=== PATIENT | female | born 1925 | race Caucasian/White ===

== ENCOUNTER 2016-07-18 11:08 | Emergency (ER) | payer MEDICARE ==
[~2016-07-18 11:08] MED LIST: Sodium Chloride 0.9% 100 ML BAG ONE
[2016-07-18] MEDS ORDERED: Promethazine HCl 25 MG/ML VIAL ONE (11:48)
[2016-07-18 11:59] LABS: #Basophils 0.2 thou/uL (0.0-0.2); #Eosinphils 0.4 thou/uL (0.0-0.7); #Lymphocytes 1.8 thou/uL (1.20-3.40); #Monocytes 1.2 thou/uL (0.11-0.59); #Neutrophils 9.8 thou/uL (1.40-6.50); %Basophils 1.3 % (0.0-1.0); %Eosinophils 3.1 % (0.0-10.0); %Lymphocytes 13.2 % (21.0-51.0); %Monocytes 9.1 % (0.0-10.0); %Neutrophils 73.3 % (42.0-75.0); Hemoglobin 14.6 g/dL (12.0-16.0); Mean Corpuscular HGB CONC 32.3 g/dL (32.0-36.0); Mean Corpuscular Volume 89.8 fl (81.0-99.0); Mean Platelet Volume 7.3 fL (7.4-10.4); Platelet Count 302 thou/uL (130-400); RBC Distribution Width 13.1 % (11.5-14.5); Red Blood Cell (RBC) Count 5.03 mill/uL (4.20-5.40); White Blood Cell (WBC) Count 13.3 thou/uL (4.8-10.8)
[2016-07-18 12:13] LABS: Bilirubin Negative (Negative); Blood, Urine Trace (Negative); Clarity Clear (Clear); Glucose, Urine (Dipstick) Negative (Negative); Leukocyte Negative (Negative); Nitrite Negative (Negative); Protein, Urine (Dipstick) 30 mg/dL (Neg-Trace); pH, Urine 5.5 (5.0-9.0)
[2016-07-18 12:22] LABS: CKMB 1.1 ng/mL (0-6.6); Troponin I Less than 0.010 ng/mL (< 0.028)
[2016-07-18 12:25] LABS: Bacteria/HPF None Seen HPF (None Seen); RBC/HPF 0-3 HPF (0-3); Squamous Epithelial 0-3 HPF (0-3); WBC/HPF 0-3 HPF (0-3)
[2016-07-18 12:28] LABS: ALT (SGPT) 14 U/L (0-55); AST (SGOT) 23 U/L (5-34); Albumin 3.6 g/dL (3.4-4.8); Alkaline Phosphatase 61 U/L (40-150); Anion Gap 16 mmol/L (10-20); BUN (Urea Nitrogen) 13 mg/dL (9.8-20.1); Bilirubin, Total 0.4 mg/dL (0.2-1.2); Calc. Creatinine Clearance 0 mL/min (70-130); Calcium 8.7 mg/dL (7.8-10.44); Carbon Dioxide 20 mmol/L (23-31); Chloride 109 mmol/L (98-107); Estimated GFR-MDRD 67; Globulin 2.7 g/dL (2.4-3.5); Glucose 96 mg/dL (83-110); Lipase 38 U/L (8-78); Potassium 3.8 mmol/L (3.5-5.1); Protein, Total 6.3 g/dL (5.8-8.1); Sodium 141 mmol/L (136-145)
[2016-07-18] MEDS ORDERED: Iopamidol 370 76% 125 ML VIAL FS ONE (13:21)
--- NOTE | 2016-07-18 14:37 | CT ---
CT HEAD WITHOUT CONTRAST: Technique: Multiple axial tomograms were obtained through the head without IV enhancement. History: Syncope. FINDINGS: There is mild cortical volume loss. The ventricles have normal size and position. Mild chronic isc hemic white matter change. No evidence of intracranial hemorrhage, contusion, mass or hemorrhage. Sinuses and mastoids are well aerated. IMPRESSION: There are chronic changes as described above. No evidence of acute process. No significant change when compared to a prior CT dated 04-13-12. POS: [facility]
--- NOTE | 2016-07-18 15:33 | CT ---
CT PULMOLNARY ANGIO STUDY OF CHEST WITH IV CONTRAST: Multiple axial tomograms obtained through the chest with IV enhancement in the pulmonary angio phase [id number] angio protocol with multiplanar reconstruction and 3D post processing. HISTORY: Syncope. Shortness of breath. Assess for pulmonary embolus. FINDINGS: Pulmonary arteries show adequate enhancement. There is no evidence of pulmonary embolus identified. The lung quevedo show chronic parenchymal changes. Apical pleural thickening with irregular parenchy mal opacities in the apices appears chronic. There is a nodular area of parenchymal opacity in the left apex measuring 1.2 cm which will need to be followed to confirm stability. There is a 7 mm chi cified granuloma in the right mid lung which is seen adjacent to the fissure. No evidence of effusi on. No evidence of infiltrate. No evidence of mediastinal or hilar adenopathy. Images through the upper abdomen appear unremarkable. There is a dominant low-density nodule in the right lobe of the thyroid measuring up to 1.5 cm. IMPRESSION: 1. No evidence of pulmonary embolus. 2. Chronic lung parenchymal changes. There is bilateral apical pleural thickening. There is a nod ular component in the left apex. Followup CT chest in 6 months is recommended to reevaluate. 3. No acute lung process identified. 4. Evidence of a dominant low density nodule in the right lobe of the thyroid. Recommend elective thyroid ultrasound evaluation. POS: [facility]
--- NOTE | 2016-07-18 16:14 | PICIS ---
[facility] EMERGENCY RECORD COMMUNICATIONS (15:05 AWAT) COMMUNICATIONS: Notes: DR PÉREZ AT [facility] IN [place] ACCEPTS PT FOR TRANSFER AT THIS TIME. TRIAGE (11:13 SCHI) TRIAGE NOTES: vomiting and passing out. (11:13 SCHI) PATIENT: NAME: Shelley Silverman, AGE: 89, GENDER: female, : Sindy 1925, TIME OF GREET: ThuJul 18, 2016 11:08, PREFERRED LANGUAGE: Swedish, ETHNICITY: Not or , ECODE BILLING MAP: [facility], SSN: [id number], Zip Code: [address], KG WEIGHT: 54.43, PHONE: , , , PERSON ID: [id number]. (11:13 SCHI) COMPLAINT: THROWING UP/NAUSEA. (11:13 SCHI) ADMISSION: URGENCY: 3 Urgent, ADMISSION SOURCE: Home, TRANSPORT: AMBULANCE - [facility], BED: ED -01. (11:13 SCHI) ASSESSMENT: Assessment: ALERT AND ORIENTED X 4, SKIN WARM AND DRY RESP EVEN AND UNLABORED,, Symptoms began this morning. (12:33 SCHI) PAIN: No complaint of pain. (12:33 SCHI) TRIAGE SCREENING: Patient denies suicidal ideation, Domestic violence. (12:33 SCHI) TREATMENTS IN PROGRESS: Saline Lock, Site: [facility], Gauge: 20, IV: .9NS, Amount Infused 50, See EMS Record, Medications Given, zofran. (12:33 SCHI) PROVIDERS: TRIAGE NURSE: Tito Nichols RN. (11:13 SCHI) VITAL SIGNS: BP 121/49, Pulse 62, Resp 18, O2 Sat 98, on Room Air, Time 07/18/2016 11:12. (11:12 SCHI) KNOWN ALLERGIES Demerol (PF): Reaction: Nausea doxycycline hyclate: Reaction: Nausea fentaNYL: Reaction: Rash Limbrel: Reaction: Nausea Macrobid: Reaction: Anaphylaxis morphine (bulk): Reaction: Nausea Penicillins: Reaction: Hives phenazopyridine Sulfa (Sulfonamide Antibiotics): Reaction: Rash tape traMADol: Reaction: Nausea Zofran (PF): Reaction: Nausea CURRENT MEDICATIONS ALPRAZolam: TABLET : Strength - 0.5 mg : ORAL Patient Dose: once a day (at bedtime).as needed. (13:24 SCHI) aspirin: TABLET : Strength - 81 mg : ORAL Patient Dose: once a day. (13:24 SCHI) &a-1R&a+25V*p+0X*b8036Q*c202B*c15G*c2P*p-0X&a-25V&a+1R Name: Shelley Silverman : 1925 F89 MedRec: [id number] AcctNum: [id number] Prepared: Sat Jul 19, 2016 03:17 by Interface Page 1 of 16 pMD [facility] EMERGENCY RECORD Lumigan: DROPS : Strength - 0.03 % : OPHTHALMIC Patient Dose: once a day (at bedtime). (13:25 SCHI) gabapentin: CAPSULE : Strength - 300 mg : ORAL Patient Dose: once a day (at bedtime). (13:25 SCHI) levothyroxine: TABLET : Strength - 75 mcg : ORAL Patient Dose: once a day. (13:25 SCHI) lisinopril: TABLET : Strength - 20 mg : ORAL Patient Dose: once a day. (13:26 SCHI) NexIUM: CAPSULE,DELAYED RELEASE (ENTERIC COATED) : Strength - 40 mg : ORAL Patient Dose: 2 times a day. (13:26 SCHI) oxybutynin chloride: TABLET : Strength - 5 mg : ORAL Patient Dose: every other day. (13:27 SCHI) Oyst-Lele D: TABLET : Strength - 250 mg calcium (625 mg)-125 unit : ORAL Patient Dose: once a day. (13:27 SCHI) simvastatin: TABLET : Strength - 40 mg : ORAL Patient Dose: once a day. (13:27 SCHI) Zonegran: CAPSULE : Strength - 25 mg : ORAL Patient Dose: 4 times a day. (13:28 SCHI) VITAL SIGNS VITAL SIGNS: BP: 121/49, Pulse: 62, Resp: 18, O2 sat: 98 on Room Air, Time: 07/18/2016 11:12. (11:12 SCHI) BP: 130/59, Pulse: 90, Resp: 20, O2 sat: 96 on Room Air, Time: 07/18/2016 13:52. (13:52 SCHI) BP: 127/62 (Lying), Pulse: 81, Time: 07/18/2016 13:00. (13:00 SCHI) BP: 127/62 (Sitting), Pulse: 81, Time: 07/18/2016 13:04. (13:04 SCHI) BP: 158/118 (Standing), Pulse: 81, Time: 07/18/2016 13:05. (13:05 SCHI) BP: 140/55, Pulse: 81, Resp: 18, Pain: 0, O2 sat: 97 on Room Air, Time: 07/18/2016 13:10. (13:10 SCHI) BP: 156/43, Pulse: 84, Time: 07/18/2016 14:30. (14:30 SCHI) BP: 147/51, Pulse: 84, Time: 07/18/2016 15:00. (15:00 SCHI) BP: 144/51, Pulse: 86, Resp: 20, Temp: 98.1 (Tympanic), Pain: 0, O2 sat: 98 on Room Air, Time: 07/18/2016 15:45. (15:45 SCHI) NURSING ASSESSMENT: NEURO (12:02 SCHI) GCS: (6) Obeying command:, (5) Orientated:, (4) Spontaneous eye opening., Result: 15. NIHSS: CVA assessment findings: Level of consciousness: alert, keenly responsive (0), Questions: answers both questions correctly (0), Commands: performs both tasks correctly (0), Best gaze: normal (0), Visual: no visual loss (0), Facial palsy: normal symmetrical &a-1R&a+25V*p+0X*d4299P*c202B*c15G*c2P*p-0X&a-25V&a+1R Name: Shelley Silverman : 1925 F89 MedRec: [id number] AcctNum: [id number] Prepared: Sat Jul 19, 2016 03:17 by Interface Page 2 of 16 pMD [facility] EMERGENCY RECORD movement (0), Motor arm left: no drift, arm stays 90/45 degrees for full 10 seconds (0), Motor arm right: no drift, arm stays 90 or45 degrees for full 10 seconds (0), Motor left leg: no drift, leg stays at 30 degrees for full five seconds (0), Motor right leg: no drift, leg stays at 30 degrees for full five seconds (0), Limb ataxia: absent -if 0, go to sensory (0), Sensory: normal, no sensory loss (0), Best language: no aphasia; normal (0), Dysarthria: normal (0), Extinction and Inattention: normal (0), Total score 0. CONSTITUTIONAL: Patient arrives, via Emergency Medical Services, Unsteady gait, Assistance to cart, History obtained from patient, Patient appears, generally ill, Patient cooperative, Patient alert, Oriented to person, place and time, Skin warm, Skin dry, Skin normal in color, Mucous membranes pink, Mucous membranes moist, Patient is well-groomed, Patient complains of vomiting and nausea and passed out x 2 this morning. PAIN: Patient rates pain as 0 out of 10. NEURO: Pupils equally round and reactive to light, Able to close eyes, Face symmetrical, Speech normal, Associated with dizziness described as, feelings of movement. NURSING PROCEDURE: BEDSIDE TESTING (15:09 SCHI) HEMOCCULT/GASTROCCULT: Stool sample, result positive, Control line positive. NURSING PROCEDURE: ACCOUNT EXECUTIVE KEY ACCOUNTS (12:02 SCHI) ACCOUNT EXECUTIVE KEY ACCOUNTS: Patient placed on event representative, Patient placed on non-invasive blood pressure monitor, Patient placed on continuous pulse oximetry, Adult/pediatric oxisensor applied. NURSING PROCEDURE: EKG CHART (12:02 SCHI) PATIENT IDENTIFIER: Patient actively involved in identification process, Patient's identity verified by patient stating name, Patient's identity verified by patient stating date. EKG: EKG indicated for complaint of palpitations, 12 lead EKG performed on the left chest, done by PIERRE MARES, Notes: repeated due to artifact from spine stimulator. NOTES: Emotional support needed and given, Patient tolerated procedure well. SAFETY: Side rails up, Cart/Stretcher in lowest position, Family at bedside, Hospital ID band on. NURSING PROCEDURE: ELIMINATION PATIENT IDENTIFIER: Patient actively involved in identification process. (14:00 SCHI) Patient actively involved in identification process. (13:10 SCHI) ELIMINATION: Patient assisted to bedside commode, Urine output (mL) 300. (14:00 SCHI) Patient assisted to bedside commode. (14:12 SCHI) Patient assisted to bedside commode, Patient had a large amount of stool per bedpan, soft in form. (13:10 SCHI) &a-1R&a+25V*p+0X*m0490J*c202B*c15G*c2P*p-0X&a-25V&a+1R Name: Shelley Silverman : 1925 F89 MedRec: [id number] AcctNum: [id number] Prepared: Sat Jul 19, 2016 03:17 by Interface Page 3 of 16 pMD [facility] EMERGENCY RECORD NURSING PROCEDURE: NURSE NOTES NURSES NOTES: Notes: Influenza A & B screen collected at bedside per nasal swab. Patient tolerated well. Family at bedside. (11:50 EROG) Notes: all times are approximate due to care being provided, then documented. (12:02 SCHI) NURSING PROCEDURE: TRANSFER (15:55 SCHI) TRANSFER: Reason for transfer need for specialized care, Diagnosis: syncopal, gi bleed, gastroenteritis, Accepting institution: [facility] er, Accepting physician: kim, Referring physician: cuca, Transported by urgent ambulance, accompanied by emergency medical services personnel, Report called to receiving facility, attempted x 2, Summary of Care printed, Copy of patient record prepared for receiving facility, Copy of diagnostic studies, Status of patient's valuables documented on chart, Medication reconciliation form prepared and sent to receiving facility, Patient consent for transfer signed, Family member contacted. BELONGINGS: Belongings sent home with family member. EQUIPMENT WITH PATIENT: Equipment with patient at time of transfer event representative, Saline lock intact and patent at time of transfer. NURSING PROCEDURE: TRANSPORT TO TESTS TRANSPORT TO TESTS: Transport indicated to facilitate diagnosis, Patient transported to CT scan. (13:15 SCHI) FOLLOW-UP: After procedure, patient returned to emergency department, Notes: PLACED BACK ON MONITORS. (13:51 SCHI) NURSING PROCEDURE: URINE COLLECTION (12:02 SCHI) PATIENT IDENTIFIER: Patient's identity verified by patient stating name, Patient's identity verified by hospital ID bracelet. URINE COLLECTION FEMALE: Urine collection indicated for UA COLLECTION, Urine collected by straight cath, using an 8fr catheter kit, in one attempt, urine yellow in color, and clear, Specimen collected, labeled in the presence of the patient and sent to lab. ORDER DETAILS Order Name: B type Natriuretic Peptide, Status: Active, Time: 11:23 07/18/2016, User: BRITTNI, - Ordered for: MD Thurman Darren, - Entered by: MD Thurman Darren - Jimmy Jul 18, 2016 11:23, - Quantity: 1, Order Name: ACCOUNT EXECUTIVE KEY ACCOUNTS ED, Status: Done, Time: 11:38 07/18/2016, User: ENEDINA, - Ordered for: MD Thurman Darren, - Entered by: MD Thurman Darren - Jimmy Jul 18, 2016 11:23, - Quantity: 1, &a-1R&a+25V*p+0X*t3872Y*c202B*c15G*c2P*p-0X&a-25V&a+1R Name: Shelley Silverman : 1925 F89 MedRec: [id number] AcctNum: [id number] Prepared: [facility] Jul 19, 2016 03:17 by Interface Page 4 of 16 pMD [facility] EMERGENCY RECORD Order Name: Cardiac Profile w/CKMB & Troponin - I, Status: Active, Time: 11:23 07/18/2016, User: BRITTNI, - Ordered for: MD Thurman Darren, - Entered by: MD Thurman Darren - ThuJul 18, 2016 11:23, - Quantity: 1, Order Name: CATH STRAIGHT ED, Status: Done, Time: 12:03 07/18/2016, User: SARAH, - Ordered for: MD Thurman Darren, - Entered by: MD Thurman Darren - Jimmy Jul 18, 2016 11:23, - Quantity: 1, Order Name: CBC with Differential, Status: Active, Time: 11:23 07/18/2016, User: BRITTNI, - Ordered for: MD Thurman Darren, - Entered by: MD Thurman Darren - Jimmy Jul 18, 2016 11:23, - Quantity: 1, Order Name: Clostridium difficile Screen, Status: Active, Time: 14:49 07/18/2016, User: BRITTNI, - Ordered for: MD Thurman Darren, - Entered by: MD Thurman Darren - Jimmy Jul 18, 2016 14:49, - Quantity: 1, Order Name: Comprehensive Metabolic Panel, Status: Active, Time: 11:23 07/18/2016, User: BRITTNI, - Ordered for: MD Thurman Darren, - Entered by: MD Thurman Darren - Jimmy Jul 18, 2016 11:23, - Quantity: 1, Order Name: CT Brain WO Con, Status: Active, Time: 12:41 07/18/2016, User: BRITTNI, - Ordered for: MD Thurman Darren, - Entered by: MD Tuhrman Darren - Jimmy Jul 18, 2016 12:41, - Quantity: 1, Order Name: CTA Angio Chest W WO Con(PE Protocol), Status: Active, Time: 12:41 07/18/2016, User: BRITTNI, - Ordered for: MD Thurman Darren, - Entered by: MD Thurman Darren - Jimmy Jul 18, 2016 12:41, - Quantity: 1, Order Name: Culture, Blood, Status: Active, Time: 11:23 07/18/2016, User: BRITTNI, - Ordered for: MD Thurman Darren, - Entered by: MD Thurman Darren - Jimmy Jul 18, 2016 11:23, - Quantity: 1, Order Name: Culture, Stool for E.coli O157, Status: Active, Time: 14:47 07/18/2016, User: BRITTNI, - Ordered for: MD Thurman Darren, - Entered by: MD Thurman Darren - Jimmy Jul 18, 2016 14:47, - Quantity: 1, Order Name: D-Dimer (Quantitative), Status: Active, Time: 11:23 07/18/2016, User: BRITTNI, - Ordered for: MD Thurman Darren, - Entered by: MD Thurman Darren - Jimmy Jul 18, 2016 11:23, - Quantity: 1, &a-1R&a+25V*p+0X*s5953P*c202B*c15G*c2P*p-0X&a-25V&a+1R Name: HerreraShelley : 1925 F89 MedRec: [id number] AcctNum: [id number] Prepared: Sat Jul 19, 2016 03:17 by Interface Page 5 of 16 pMD [facility] EMERGENCY RECORD Order Name: EKG 12 Lead in Emergency Room, Status: Active, Time: 11:23 07/18/2016, User: BRITTNI, - Ordered for: MD Thurman Darren, - Entered by: MD Thurman Darren - Jimmy Jul 18, 2016 11:23, - Quantity: 1, Order Name: EKG 12 Lead in Emergency Room, Status: Active, Time: 14:14 07/18/2016, User: BRITTNI, - Ordered for: MD Thurman Darren, - Entered by: MD Thurman Darren - ThuJul 18, 2016 14:14, - Quantity: 1, Order Name: Fecal Lactoferrin, Status: Active, Time: 14:48 07/18/2016, User: BRITTNI, - Ordered for: MD Thurman Darren, - Entered by: MD Thurman Darren - ThuJul 18, 2016 14:48, - Quantity: 1, Order Name: Influenza A&B Ag Screen, Status: Active, Time: 11:23 07/18/2016, User: BRITTNI, - Ordered for: MD Thurman Darren, - Entered by: MD Thurman Darren - ThuJul 18, 2016 11:23, - Quantity: 1, Order Name: Lactic Acid with repeat, Status: Active, Time: 11:23 07/18/2016, User: BRITTNI, - Ordered for: MD Thurman Darren, - Entered by: MD Thurman Darren - ThuJul 18, 2016 11:23, - Quantity: 1, Order Name: Lipase, Status: Active, Time: 11:23 07/18/2016, User: BRITTNI, - Ordered for: MD Thurman Darren, - Entered by: MD Thurman Darren - Jimmy Jul 18, 2016 11:23, - Quantity: 1, Order Name: Occult Blood, Stool DIAGNOSTIC(Guiac), Status: Active, Time: 14:48 07/18/2016, User: BRITTNI, - Ordered for: MD Thurman Darren, - Entered by: MD Thurman Darren - ThuJul 18, 2016 14:48, - Quantity: 1, Order Name: SALINE LOCK, Status: Done, Time: 11:45 07/18/2016, User: SARAH, - Ordered for: MD Thurman Darren, - Entered by: MD Thurman Darren - ThuJul 18, 2016 11:23, - Quantity: 1, Order Name: Thyroid Stimulating Hormone, Status: Active, Time: 11:23 07/18/2016, User: BRITTNI, - Ordered for: MD Thurman Darren, - Entered by: MD Thurman Darren - ThuJul 18, 2016 11:23, - Quantity: 1, Order Name: Urinalysis w/ Rflx Microscopic, Status: Active, Time: 11:23 07/18/2016, User: BRITTNI, - Ordered for: MD Thurman Darren, - Entered by: MD Thurman Darren - ThuJul 18, 2016 11:23, - Quantity: 1. &a-1R&a+25V*p+0X*y0686D*c202B*c15G*c2P*p-0X&a-25V&a+1R Name: Shelley Silverman : 1925 F89 MedRec: [id number] AcctNum: [id number] Prepared: [facility] Jul 19, 2016 03:17 by Interface Page 6 of 16 pMD [facility] EMERGENCY RECORD MEDICATION ADMINISTRATION SUMMARY Drug Name: *Phenergan injection, Dose Ordered: 12.5 mg, Route: IV Piggy Back, Status: Given, Time: 12:01 07/18/2016, Drug Name: *sodium chloride 0.9 % intravenous, Dose Ordered: 500 mL, Route: IV Fluid Infusion, Status: Given, Time: 11:30 07/18/2016, *Additional information available in notes, Detailed record available in Medication Service section. MEDICATION SERVICE Phenergan injection: Order: Phenergan injection (promethazine HCl) - Dose: 12.5 mg : IV Piggy Back Schedule: Now Notes: please place in 50 ml minibag Ordered by: Wilbur Thurman MD Entered by: Wilbur Thurman MD ThuJul 18, 2016 11:26 , Acknowledged by: Tito Nichols RN ThuJul 18, 2016 11:47 Documented as given by: Tito Nichols RN ThuJul 18, 2016 12:01 Patient, Medication, Dose, Route and Time verified prior to administration. IV SITE #1 IVPB or drip, initial infusion, IVPB mixed in: 100ml, Fluid: 0.9NS, via secondary tubing, Catheter placement confirmed via flush prior to administration, IV site without signs or symptoms of infiltration during medication administration, No swelling during administration, No drainage during administration, IV flushed after administration, Correct patient, time, route, dose and medication confirmed prior to administration, Patient advised of actions and side-effects prior to administration, Allergies confirmed and medications reviewed prior to administration. : Follow Up : Response assessment performed, No signs or symptoms of allergic reaction noted, _IV SITE #1:_, Medication infusion discontinued, on ThuJul 18, 2016 12:30, 30 minutes, ., Total amount infused: 100 ml, IV Line flushed after administration. (12:30 SCHI) sodium chloride 0.9 % intravenous: Order: sodium chloride 0.9 % intravenous (0.9 % sodium chloride) - Dose: 500 mL : IV Fluid Infusion Schedule: Now Notes: (Bolus)then SL Ordered by: Wilbur Thurman MD Entered by: Wilbur Thurman MD ThuJul 18, 2016 11:21 Documented as given by: Tito Nichols RN ThuJul 18, 2016 11:30 Patient, Medication, Dose, Route and Time verified prior to administration. IV SITE #1 IV fluids established for hydration, IV SITE #1 into right antecubital, IV SITE #1 1st bag hung, amount 1 Liter hung, IV SITE #1 bolus of 500 ml established, IV SITE #1 Rate of bolus, wide open, Catheter placement confirmed via flush prior to administration, IV site without signs or symptoms of infiltration during medication &a-1R&a+25V*p+0X*z4926V*c202B*c15G*c2P*p-0X&a-25V&a+1R Name: Shelley Silverman : 1925 F89 MedRec: [id number] AcctNum: [id number] Prepared: [place] Jul 19, 2016 03:17 by Interface Page 7 of 16 pMD [facility] EMERGENCY RECORD administration, No swelling during administration, No drainage during administration, IV flushed after administration, Correct patient, time, route, dose and medication confirmed prior to administration, Patient advised of actions and side-effects prior to administration, Allergies confirmed and medications reviewed prior to administration. : Follow Up : Response assessment performed, No signs or symptoms of allergic reaction noted, _IV SITE #1:_, IV fluid infusion discontinued, on ThuJul 18, 2016 12:25, 55 minutes, ., Total amount infused: 500 ml, IV Line flushed after administration. (12:25 SCHI) HPI SYNCOPE (12:42 DHAM) CHIEF COMPLAINT: Patient presents for evaluation of syncope. HISTORIAN: History provided by patient, Pt was sitting on the toilet and became unconscious for about 15 sec with cargiver closeby. Did not fall. Assisted to the bed and then had another episode of syncope with 15 sec of LOC and 4-5 episodes of emesis of "undigested food" per EMS. They also examined the stool and it appeared normal not hard or diarrhea. EMS was there for the second episode of syncope and the vomiting. No melena or bloody emesis. EMS gave Zofran 4mg en route but family states that Zofran usually makes the patient more nauseated. She has trouble with chronic nausea and has tried many meds and "Phenergan is the only thing that works for her.". LOCATION: Unable to localize symptoms. QUALITY: Symptom quality described as blackout. SEVERITY: Current severity of pain rated as 0/10. TIME COURSE: Sudden onset of symptoms, 1, hours prior to arrival, There has been no change in the patient's symptoms over time. ASSOCIATED WITH: No associated abdominal pain, No associated back pain, No associated change in speech, No associated chest pain, No associated diarrhea, No associated diaphoresis, No associated fall, No associated focal deficit, No associated GI Bleed, No associated headache, No associated pleuritic chest pain, No associated recent surgery, Associated with hoahaoism of normal mental status, immediate, No associated shortness of breath, No associated seizures, No associated tachycardia, Associated with vomiting, Number of times: 4-5, for 1 hour, currently resolved, Associated with weakness. MODIFYING FACTORS: Patient menopausal. EXACERBATED BY: Patient's condition exacerbated by bm and vomiting. RELIEVED BY: Patient's condition relieved by time. RISK FACTORS: Abdominal aortic aneurysm risk factors, include age over 40 years, Subarachnoid hemorrhage risk factors, not applicable for this patient, Thoracic aortic dissection risk factors, not applicable for this patient, Coronary artery disease risk factors, include high cholesterol, include h/o tia, Pulmonary embolism risk factors, not applicable to this patient. WELLS CRITERIA FOR PE: No clinical signs &a-1R&a+25V*p+0X*a6097K*c202B*c15G*c2P*p-0X&a-25V&a+1R Name: Shelley Silverman : 1925 F89 MedRec: [id number] AcctNum: [id number] Prepared: [place] Jul 19, 2016 03:17 by Interface Page 8 of 16 pMD [facility] EMERGENCY RECORD and symptoms of a DVT (0), Patient does not have, or is likely to not have, a primary diagnosis of PE (0), Patient's heart rate is less than 100 (0), Patient has no history of immobilization within 3 days, nor any surgical history within the past 4 weeks (0), Patient has not had an objectively diagnosed PE or DVT previously (0), Patient does not have hemoptysis (0), Patient has not had treatment for malignancy within the last 6 months, nor palliative (0), Total 0. ROS (12:51 DHAM) CONSTITUTIONAL: Historian denies fatigue, denies fever, denies lethargy, denies night sweats. EYES: Historian denies eye discharge, denies photophobia. ENT: Historian denies rhinorrhea, denies sinus pain, denies sore throat. CARDIOVASCULAR: Historian denies chest pain, denies diaphoresis, denies dyspnea on exertion, denies edema, denies exercise intolerance, denies palpitations. RESPIRATORY: Historian denies cough, denies shortness of breath, denies sputum. GI: Historian denies abdominal pain, Historian denies anorexia, Historian denies constipation, Historian denies diarrhea, Historian denies hematochezia, Historian reports nausea and vomiting as noted above. GENITOURINARY FEMALE: Historian denies dysuria, denies frequency, denies hematuria, denies incontinence. MUSCULOSKELETAL: Historian denies arthralgias, Historian reports chronic low back pain with implanted spinal stimulator, Historian denies myalgias. SKIN: Historian denies cellulitis, denies rash, denies skin lesions. NEUROLOGIC: Historian denies focal weakness, Historian denies confusion, Historian denies gait changes, Historian denies headache, Historian denies paresthesias. syncope x 2 as above. HEMO/LYMPHATIC: Historian denies anemia, denies easy bruising. PSYCHIATRIC: Historian denies alcohol abuse, denies anxiety, denies depression. NOTES: All systems reviewed, negative except as described above. PAST MEDICAL HISTORY (12:33 SCHI) MEDICAL HISTORY: Notes: gerd, djd, vertigo, lumbar stenosis, arachnoiditis, renal cyst,. FEMALE SURGICAL HISTORY: s;inal cord stimulator, Surgical history of appendectomy, Surgical history of carpal tunnel surgery, Notes: bilateral, Surgical history of cholecystectomy, Surgical history of hysterectomy, Surgical history of tonsillectomy. PHYSICAL EXAM (12:56 DHAM) CONSTITUTIONAL: Vital signs reviewed, Patient afebrile, Pulse normal, Blood pressure normal, Respiratory rate normal, Patient &a-1R&a+25V*p+0X*f8471E*c202B*c15G*c2P*p-0X&a-25V&a+1R Name: Shelley Silverman : 1925 F89 MedRec: [id number] AcctNum: [id number] Prepared: Sat Jul 19, 2016 03:17 by Interface Page 9 of 16 pMD [facility] EMERGENCY RECORD appears weak and like she does not feel well. Prefers to lay supine, Patient appears pain free, Patient alert and oriented to person, place and time. HEAD: Head exam normal, Head exam included findings of head atraumatic, normocephalic. EYES: Eye exam included findings of eyelids normal to inspection, Pupils equally round and reactive to light, Extraocular muscles intact, Conjunctiva normal, Sclera normal. ENT: Ear exam normal, Nose exam normal, Pharynx exam normal, Uvula exam normal, Tonsil exam normal, Mouth exam normal, mucous membranes moist. NECK: Neck exam normal, Neck exam included findings of normal range of motion, Trachea midline, no meningeal signs, no jugular venous distention, no cervical adenopathy. RESPIRATORY CHEST: Respiratory and chest exam normal, Respiratory exam included findings of no respiratory distress, Breath sounds clear, No wheezing, No rales, Breath sounds not diminished. CARDIOVASCULAR: Cardiovascular exam included findings of heart rate regular rate and rhythm, Heart sounds normal, normal S1, normal S2, no murmurs, Pedal pulses normal. ABDOMEN FEMALE: Abdominal exam normal, Abdominal exam included findings of abdomen nontender, Bowel sounds normal, Liver normal, Spleen normal, no distension, no mass, no peritoneal signs, no rigidity, no guarding, no rebound. BACK: Back exam normal, Back exam included findings of normal inspection, range of motion normal, no tenderness. UPPER EXTREMITY: Upper extremity exam normal, Upper extremity exam included findings of inspection normal, Range of motion normal, Motor strength normal, Sensation intact. LOWER EXTREMITY: Lower extremity exam normal, Lower extremity exam included findings of inspection normal, Range of motion normal, Motor strength normal, Sensation intact, Pedal pulse normal. NEURO: Thrall coma scale 15, Neuro exam findings include patient oriented to person, place and time, Speech normal, Gait normal, Cranial nerves intact, Deep tendon reflexes normal, no focal motor deficits, no focal sensory deficits, no cerebellar deficits. SKIN: Skin exam normal, Skin exam included findings of skin warm, dry, and normal in color, no rash. LYMPHATIC: Lymphatic exam normal, Lymphatic exam included findings of cervical nodes normal. PSYCHIATRIC: Psychiatric exam included findings of patient oriented to person place and time, Normal affect, Judgment normal, Insight normal, Remote memory normal, Recent memory normal, Concentration normal. LAB INTERPRETATION (13:05 DHAM) INTERPRETATION: CBC abnormal, White blood cell count elevated, Chemistry normal, Cardiac enzymes normal, Liver functions normal, Lipase normal, Urinalysis normal, D-dimer, elevated, Influenza negative, Lactate &a-1R&a+25V*p+0X*q2084L*c202B*c15G*c2P*p-0X&a-25V&a+1R Name: Shelley Silverman : 1925 F89 MedRec: [id number] AcctNum: [id number] Prepared: Sat Jul 19, 2016 03:17 by Interface Page 10 of 16 D [facility] EMERGENCY RECORD normal. EVENTS TRANSFER: Triage to Emergency Main ED -01. (ThuJul 18, 2016 11:13 SCHI) Removed from Emergency Main ED -01. (16:10 SCHI) [facility] Head CT negative, without contrast, no bleed, no mass, no acute ischemic stroke, no acute changes. CHEST: Chest CT, with contrast shows, no fractures, no infiltrate, no pneumothorax, no hemothorax, no pleural effusion, no pulmonary embolism, mass on the left, Other findings: left apex with 1.5cm thickening at the apex with follow recommended in 6 months and 1.5cm thyroid nodule with thyroid ultrasound recommended. Pt and family aware of both of these. EKG INTERPRETATION 12 LEAD EKG INTERPRETATION: 12 lead EKG interpreted by Emergency Department Physician at time of study, 12 lead EKG shows normal sinus rhythm, Rate (beats per minute): 65, with no ectopics, No previous EKG available for comparison, Conduction with, complete right bundle branch block, ST segments normal, T waves, inverted, Leads affected: V1, Leads affected: V2, Areas affected: anterior leads, Kismet normal, Clinical impression:, There is marked interference that I think is due to her spinal stimulator and this is as specific as I can be. The family will bring the controller to turn this off for repeat EKG vipul. (13:03 DHAM) 12 lead EKG interpreted by Emergency Department Physician at time of study, 12 lead EKG shows normal sinus rhythm, Rate (beats per minute): 84, with no ectopics, Compared with previous EKG from, 2 hours ago, Similar to old EKG, Conduction with, complete right bundle branch block, ST segments normal, T waves, inverted, Leads affected: V1, Leads affected: V2, Kismet normal. (14:14 DHAM) O2SAT INTERPRETATION (12:41 DHAM) O2SAT: Single pulse oximetry, Oxygen saturation 98%, on room air, Oxygen saturation interpretation: Normal, No intervention required. DOCTOR NOTES TEXT: I have discussed the need for tele monitor with pt, daughter and Dr. Carreno. The pt and daughter are aware that she may have a lethal arrhythmia but they state that she is a no code and the pt who is mentally very sharp understands this as well but tells me that she does not want to go to another facility. I have discussed the patient and her wishes with Dr. Carreno who accepts the pt into our facility at 1435. see orders. Labs are quite reassuring as is her EKG. Only abnormality would be the elevated D-dimer and slight &a-1R&a+25V*p+0X*s3771S*c202B*c15G*c2P*p-0X&a-25V&a+1R Name: Shelley Silverman : 1925 F89 MedRec: [id number] AcctNum: [id number] Prepared: [place] Jul 19, 2016 03:17 by Interface Page 11 of 16 pMD [facility] REC[facility] elevation of her serum wbc. her ct chest is without evidence of pe and further workup does not suggest bacterial etiology. She has had several episodes of diarrhea here and I suspect a viral gastroenteritis with vasovagal syncope x 2 earlier due to abdominal cramping. (14:36 DHAM) Pt just had her 4th episode of loose stool and this time the stool is brown with intermixed with bright red blood. She has no further syncope or other evidence of acute GI bleeding but with this and the other concerns listed above, I don't think we can keep her in our facility at this point. (14:50 DHAM) Pt discussed with Dr. Khalil at [facility] who accepts the pt in transfer. Pt appears stable for transfer. (15:07 DHAM) PROBLEM LIST No recorded problems DIAGNOSIS (15:48 DHAM) FINAL: PRIMARY: vasovagal syncope, ADDITIONAL: hematochezia, viral gastroenteritis. DISPOSITION PATIENT: Disposition Type: Admit, Disposition: [facility]. (14:45 DHAM) Disposition Type: Transfer, Disposition: Transfer to [facility]. (15:48 DHAM) Patient left the department. (16:10 SCHI) PRESCRIPTION No recorded prescriptions IMAGING *EKG: Image captured from scanner. (13:07 EROG) EKG REPEAT: Image captured from scanner. (14:20 SCHI) CONSENTS: Image captured from scanner. (15:13 AWAT) *MEMORANDUM OF TRANSFER: Image captured from scanner. (15:18 AWAT) EMS TRANSPORT ORDERS: Image captured from scanner. (15:18 AWAT) *SUPPLY CHARGE SHEET: Image captured from scanner. (16:09 SCHI) TSFR WORK SHEET: Image captured from scanner. (16:33 JPAR) Page 2 added. Image captured from scanner. (16:35 JPAR) ADMIN DIGITAL SIGNATURE: VISHNU Bennett Eugene. (11:39 EROG) VISHNU Bennett Eugene. (11:52 EROG) VISHNU Bennett Eugene. (13:07 EROG) VISHNU Bennett Eugene. (13:12 EROG) VISHNU Nichols, Tito. (16:10 SCHI) MD Cuca, Wilbur. (Sat Jul 19, 2016 03:04 [facility]) RESULTS RADIOLOGY: CT Brain WO Con Observe DT: ThuJul 18, 2016 12:42, &a-1R&a+25V*p+0X*j1138T*c202B*c15G*c2P*p-0X&a-25V&a+1R Name: Shelley Silverman : 1925 F89 MedRec: [id number] AcctNum: [id number] Prepared: Sat Jul 19, 2016 03:17 by Interface Page 12 of 16 pMD [facility] RECORD BR CT HEAD WITHOUT CONTRAST: Technique: Multiple axial tomograms were obtained through the head without IV enhancement. History: Syncope. FINDINGS: There is mild cortical volume loss. The ventricles have normal size and position. Mild chronic isc hemic white matter change. No evidence of intracranial hemorrhage, contusion, mass or hemorrhage. Sinuses and mastoids are well aerated. IMPRESSION: There are chronic changes as described above. No evidence of acute process. No significant change when compared to a prior CT dated 04-13-12. POS: [facility] . (15:16 AWAT) LABORATORY: Urine Microscopic Collection DT: ThuJul 18, 2016 12:09, RBC/HPF 0-3 HPF, Range (0-3), WBC/HPF 0-3 HPF, Range (0-3), Squamous Epithelial 0-3 HPF, Range (0-3), Bacteria/HPF None Seen HPF, Range (None Seen). (12:27 [facility]) Urinalysis w/ Rflx Microscopic Collection DT: ThuJul 18, 2016 12:09, Color Yellow , Range (Yellow), Clarity Clear , Range (Clear), Specific [employer] [place], Urine 1.010 , Range (1.005-1.030), pH, Urine 5.5 , Range (5.0-9.0), Leukocyte Negative , Range (Negative), Nitrite Negative , Range (Negative), *Protein, Urine (Dipstick) 30 - H mg/dL, Range (Neg-Trace), Glucose, Urine (Dipstick) Negative mg/dL, Range (Negative), Ketone, Urine Negative mg/dL, Range (Negative), Urobilinogen 1.0 mg/dL, Range (0.2-1.0), Bilirubin Negative , Range (Negative), *Blood, Urine Trace - H , Range (Negative). (12:27 DHAM) B type Natriuretic Peptide Collection DT: ThuJul 18, 2016 11:53, B type Natriuretic Peptide 83.4 pg/mL, Range (0-100). (12:27 DHAM) Cardiac Profile w/CKMB & TropI Collection DT: ThuJul 18, 2016 11:53, CKMB 1.1 ng/mL, Range (0-6.6), Troponin I Less than 0.010 ng/mL, Range (< 0.028), Reference Range , 0.00 - 0.028 ng/mL Negative 0.029 - 0.29 ng/mL , Indeterminate &a-1R&a+25V*p+0X*t3525G*c202B*c15G*c2P*p-0X&a-25V&a+1R Name: Shelley Silverman : 1925 F89 MedRec: [id number] AcctNum: [id number] Prepared: [facility] Jul 19, 2016 03:17 by Interface Page 13 of 16 pMD [facility] EM[facility] RECORD Greater or Equal to 0.3 ng/mL Strongly suggests PR , . (12:27 D[facility]) MICROBIOLOGY: Influenza A&B Ag Screen: [id number] Collection DT: ThuJul 18, 2016 11:53, See comment below , @ ER ROOM#: [id number] Source: Nasal swab Spec Desc: , Influenza A Antigen: NEGATIVE for the , presence of , INFLUENZA A Antigen , Influenza B Antigen: NEGATIVE for the , presence of , INFLUENZA B Antigen , The rapid Flu A&B test can distinguish between influenza A , Influenza A&B Ag Screen See comment below , and B viruses, but it does not differentiate influenza , Influenza A&B Ag Screen See comment below , subtypes. , Influenza A&B Ag Screen See comment below , Influenza A&B Ag Screen See comment below , Influenza A&B Ag Screen See comment below , Influenza A&B Ag Screen See comment below , characteristics of this device with human specimens infected , Influenza A&B Ag Screen See comment below , with the 2008 H1N1 influenza virus have not been , Influenza A&B Ag Screen See comment below , established. For example: this test cannot distinguish , Influenza A&B Ag Screen See comment below , influenza infections caused by novel H1N1 influenza A , Influenza A&B Ag Screen See comment below , viruses versus seasonal influenza A viruses. , Influenza A&B Ag Screen See comment below , , Influenza A&B Ag Screen See comment below , A negative result does not exclude influenza virus , Influenza A&B Ag Screen See comment below , infection; therefore, if more conclusive testing is desired, , Influenza A&B Ag Screen See comment below , follow up confirmatory testing is warranted., Influenza A&B Ag Screen See comment below . (12:27 [facility]) LABORATORY: CBC with Differential Collection DT: ThuJul 18, 2016 11:53, *White Blood Cell (WBC) Count 13.3 - H thou/uL, Range (4.8-10.8), Red Blood Cell (RBC) Count 5.03 mill/uL, Range (4.20-5.40), Hemoglobin 14.6 g/dL, Range (12.0-16.0), Hematocrit 45.2 %, Range (36.0-47.0), Mean Corpuscular Volume 89.8 fl, Range (81.0-99.0), Mean Corpuscular Hemoglobin 29.0 pg, Range (27.0-31.0), Mean Corpuscular HGB CONC 32.3 g/dL, Range (32.0-36.0), RBC Distribution Width 13.1 %, Range (11.5-14.5), Platelet Count 302 thou/uL, Range (130-400), &a-1R&a+25V*p+0X*o2335D*c202B*c15G*c2P*p-0X&a-25V&a+1R Name: Shelley Silverman : 1925 F89 MedRec: [id number] AcctNum: [id number] Prepared: Sat Jul 19, 2016 03:17 by Interface Page 14 of 16 pMD [facility] RECORD *Mean Platelet Volume 7.3 - L fL, Range (7.4-10.4), %Neutrophils 73.3 %, Range (42.0-75.0), *%Lymphocytes 13.2 - L %, Range (21.0-51.0), %Monocytes 9.1 %, Range (0.0-10.0), %Eosinophils 3.1 %, Range (0.0-10.0), *%Basophils 1.3 - H %, Range (0.0-1.0), *#Neutrophils 9.8 - H thou/uL, Range (1.40-6.50), #Lymphocytes 1.8 thou/uL, Range (1.20-3.40), *#Monocytes 1.2 - H thou/uL, Range (0.11-0.59), #Eosinphils 0.4 thou/uL, Range (0.0-0.7), #Basophils 0.2 thou/uL, Range (0.0-0.2). (12:27 DHA) Lipase Collection DT: ThuJul 18, 2016 11:53, Lipase 38 U/L, Range (8-78). (12:32 DHAM) Comprehensive Metabolic Panel Collection DT: ThuJul 18, 2016 11:53, Sodium 141 mmol/L, Range (136-145), Potassium 3.8 mmol/L, Range (3.5-5.1), *Chloride 109 - H mmol/L, Range (98-107), *Carbon Dioxide 20 - L mmol/L, Range (23-31), Anion Gap 16 mmol/L, Range (10-20), BUN (Urea Nitrogen) 13 mg/dL, Range (9.8-20.1), Creatinine 0.81 mg/dL, Range (0.6-1.1), Estimated GFR-MDRD 67 , Reference Range for Estimated GFR: Greater than 90, mL/min/1.73 m2 NOTE: The MDRD equation has not been validated for use, with the elderly (over 70 years of age), women, patients with, serious comorbid condition or persons with extremes of body size, muscle, mass, or nutritional status. , Glucose 96 mg/dL, Range (83-110), Calcium 8.7 mg/dL, Range (7.8-10.44), Bilirubin, Total 0.4 mg/dL, Range (0.2-1.2), Protein, Total 6.3 g/dL, Range (5.8-8.1), NOTE: Plasma values are generally 0.3 to 0.5 g/dL higher than serum values, due to the presence of fibrinogen. , Albumin 3.6 g/dL, Range (3.4-4.8), Globulin 2.7 g/dL, Range (2.4-3.5), Alb/Glob Ratio 1.3 g/dL, Range (1.2-2.2), Alkaline Phosphatase 61 U/L, Range (40-150), AST (SGOT) 23 U/L, Range (5-34), ALT (SGPT) 14 U/L, Range (0-55). (12:32 DHA) D-Dimer (Quantitative) Collection DT: ThuJul 18, 2016 11:53, *D-Dimer Test 15.41 - H *mcg/mL, Range (0.27-0.43), * Reference Range Units: mcg/mL of fibrinogen equivalent, units(FEU) Based upon a retrospective study of [facility] patients in October 2005, a result of Less than 0.44 mcg/mL FEU is, predictive of the absence of a DVT or PE. . (12:32 [facility]) &a-1R&a+25V*p+0X*e7682W*c202B*c15G*c2P*p-0X&a-25V&a+1R Name: Shelley Silverman : 1925 F89 MedRec: [id number] AcctNum: [id number] Prepared: Sat Jul 19, 2016 03:17 by Interface Page 15 of 16 pMD [facility] EM[facility]GENC[facility] RECORD Thyroid Stimulating Hormone Collection DT: ThuJul 18, 2016 11:53, Thyroid Stimulating Hormone 3.4549 uIU/mL, Range (0.35-4.94). (13:42 SCHI) Lactic Acid for Sepsis Collection DT: ThuJul 18, 2016 12:19, Lactic Acid - Sepsis 2.2 mmol/L, Range (0.5-2.2). (13:42 SCHDaev) Walker: TENNILLE=VISHNU Moore, Jose ELKINS=MD Cuca, Wilbur MCCONNELL=VISHNU Bennett, Alex INFANTE=TAYLOR Edmond, Rachel SMITH=VISHNU Nichols, Slinda &a-1R&a+25V*p+0X*e9754N*c202B*c15G*c2P*p-0X&a-25V&a+1R Name: Shelley Silverman : 1925 F89 MedRec: [id number] AcctNum: [id number] Prepared: [place] Jul 19, 2016 03:17 by Interface Page 16 of 16 pMD MTDD
== END 2016-07-18 15:55 | disposition short-term general hospital (02) ==
LOC: MADERS 11:08
DX: A08.4 Viral intestinal infection, unspecified (principal)
CPT/HCPCS: 36415; 51701; 70450; 71275; 80053; 81003; 81015; 82274; 82553; 83605; 83630; 83690; 83880; 84443; 84484; 85025; 85379; 87040; 87081; 87324; 87449; 93005; 96361; 96365; A4353; J2550; J7050

== ENCOUNTER 2016-09-16 19:55 | Emergency (ER) | payer MEDICARE, MEDICAID ==
[2016-09-16] MEDS ORDERED: traMADol HCl 50 MG TAB ONE (20:56)
[2016-09-16] MEDS ORDERED: Acetaminophen 325 MG TAB ONE (20:56)
[2016-09-16] MEDS ORDERED: Ketorolac Tromethamine 30 MG/ML VIAL ONE (21:37)
== END 2016-09-16 22:01 | disposition home or self-care (01) ==
LOC: MADERS 19:55
DX: M54.2 Cervicalgia (principal); M54.9 Dorsalgia, unspecified; F32.9 Major depressive disorder, single episode, unspecified; Z79.82 Long term (current) use of aspirin; Z79.899 Other long term (current) drug therapy
CPT/HCPCS: 96372; J1885

== ENCOUNTER 2016-10-08 10:46 | Emergency (ER) | payer MEDICARE, MEDICAID ==
[2016-10-08] MEDS ORDERED: Ketorolac Tromethamine 30 MG/ML VIAL ONE (11:18)
== END 2016-10-08 11:45 | disposition home or self-care (01) ==
LOC: MADERS 10:46
DX: M54.12 Radiculopathy, cervical region (principal); F32.9 Major depressive disorder, single episode, unspecified; Z79.82 Long term (current) use of aspirin; Z79.899 Other long term (current) drug therapy
CPT/HCPCS: 96372; J1885

== ENCOUNTER 2016-11-03 14:07 | Outpatient (CLI) | payer MEDICARE ==
[2016-11-03 15:12] LABS: #Basophils 0.1 thou/uL (0.0-0.2); #Eosinphils 0.4 thou/uL (0.0-0.7); #Monocytes 0.8 thou/uL (0.11-0.59); %Monocytes 11.6 % (0.0-10.0); %Neutrophils 54.4 % (42.0-75.0); Hemoglobin 13.1 g/dL (12.0-16.0); Mean Corpuscular HGB CONC 33.7 g/dL (32.0-36.0); Mean Corpuscular Hemoglobin 28.2 pg (27.0-31.0); Mean Corpuscular Volume 83.6 fl (81.0-99.0); Mean Platelet Volume 6.3 fL (7.4-10.4); Platelet Count 311 thou/uL (130-400); RBC Distribution Width 13.4 % (11.5-14.5); Red Blood Cell (RBC) Count 4.65 mill/uL (4.20-5.40); White Blood Cell (WBC) Count 7.3 thou/uL (4.8-10.8)
[2016-11-04 18:32] LABS: Folate (Folic Acid) 33.6 ng/mL (7.0-31.4)
== END 2016-11-03 14:08 | disposition home or self-care (01) ==
LOC: MADLABBHPM 14:07
PROVIDERS: ATTEND Family Medicine
DX: E53.8 Deficiency of other specified B group vitamins (principal); R31.29 Other microscopic hematuria
CPT/HCPCS: 36415; 82607; 82746; 85025

== ENCOUNTER 2016-11-20 13:53 | Emergency (ER) | payer MEDICARE ==
[2016-11-20] MEDS ORDERED: Ibuprofen 600 MG TAB ONE (14:56)
== END 2016-11-20 15:03 | disposition home or self-care (01) ==
LOC: MADERS 13:53
DX: G62.9 Polyneuropathy, unspecified (principal); E78.5 Hyperlipidemia, unspecified; I10 Essential (primary) hypertension; K21.9 Gastro-esophageal reflux disease without esophagitis; F41.9 Anxiety disorder, unspecified; Z79.82 Long term (current) use of aspirin; Z79.899 Other long term (current) drug therapy
CPT/HCPCS: 99283

== ENCOUNTER 2016-12-02 07:45 | Emergency (ER) | payer MEDICARE ==
--- NOTE | 2016-12-02 09:13 | CT ---
HEAD CT WITHOUT CONTRAST: Date: 12-02-16 Comparison: 07-18-16 History: High blood pressure. Acute dizziness. Technique: Serial axial CT imaging at 5 mm intervals from vertex through skull base without contrast . FINDINGS: The imaged paranasal sinuses and mastoid air cells are well aerated. There is no displaced calvarial fracture. No intracranial hemorrhage, midline shift, mass effect, or ventricular enlargement. IMPRESSION: No acute findings. POS: [facility]
[2016-12-02 09:16] LABS: #Basophils 0.2 thou/uL (0.0-0.2); #Eosinphils 0.5 thou/uL (0.0-0.7); #Lymphocytes 2.5 thou/uL (1.20-3.40); #Monocytes 0.9 thou/uL (0.11-0.59); #Neutrophils 3.9 thou/uL (1.40-6.50); %Basophils 2.9 % (0.0-1.0); %Eosinophils 6.3 % (0.0-10.0); %Lymphocytes 31.2 % (21.0-51.0); %Neutrophils 48.6 % (42.0-75.0); Hemoglobin 14.6 g/dL (12.0-16.0); Mean Corpuscular HGB CONC 31.5 g/dL (32.0-36.0); Mean Corpuscular Hemoglobin 26.7 pg (27.0-31.0); Mean Corpuscular Volume 84.7 fl (81.0-99.0); Platelet Count 300 thou/uL (130-400); RBC Distribution Width 14.1 % (11.5-14.5); Red Blood Cell (RBC) Count 5.47 mill/uL (4.20-5.40); White Blood Cell (WBC) Count 8.1 thou/uL (4.8-10.8)
[2016-12-02 09:20] LABS: Bilirubin Negative (Negative); Blood, Urine Trace (Negative); Clarity Clear (Clear); Glucose, Urine (Dipstick) Negative (Negative); Leukocyte Negative (Negative); Nitrite Negative (Negative); Protein, Urine (Dipstick) Negative (Neg-Trace); Urobilinogen 0.2 mg/dL (0.2-1.0)
[2016-12-02 09:22] LABS: Bacteria/HPF Rare-Few HPF (None Seen); RBC/HPF 0-3 HPF (0-3); Squamous Epithelial 0-3 HPF (0-3); WBC/HPF 0-3 HPF (0-3)
[2016-12-02 09:26] LABS: ALT (SGPT) 15 U/L (8-55); AST (SGOT) 20 U/L (5-34); Albumin 3.8 g/dL (3.4-4.8); Alkaline Phosphatase 57 U/L (40-150); Anion Gap 11 mmol/L (10-20); BUN (Urea Nitrogen) 15 mg/dL (9.8-20.1); Bilirubin, Total 0.4 mg/dL (0.2-1.2); Calc. Creatinine Clearance 0 mL/min (70-130); Calcium 8.8 mg/dL (7.8-10.44); Carbon Dioxide 28 mmol/L (23-31); Chloride 107 mmol/L (98-107); Estimated GFR-MDRD 69; Globulin 3.3 g/dL (2.4-3.5); Glucose 86 mg/dL (83-110); Magnesium 2.1 mg/dL (1.6-2.6); Potassium 4.1 mmol/L (3.5-5.1); Protein, Total 7.1 g/dL (6.0-8.3); Sodium 142 mmol/L (136-145)
[2016-12-02 09:29] LABS: Troponin I Less than 0.010 ng/mL (< 0.028)
[2016-12-02] MEDS ORDERED: Lisinopril 10 MG TAB ONE (09:35)
[2016-12-02 09:56] LABS: Anisocytosis SLIGHT = 6-15 cells (100X) (0-5/hpf); Eosinophils 4 % (0-10); Lymphocytes 33 % (21-51); Monocytes 14 % (0-10); Neutrophil 46 % (42-75); PLT Morphology Comment Appears Adequate
[2016-12-02] MEDS ORDERED: Promethazine HCl 25 MG/ML VIAL ONE (10:45)
[2016-12-02 11:14] LABS: CKMB 0.7 ng/mL (0-6.6)
[2016-12-02] MEDS ORDERED: Ketorolac Tromethamine 30 MG/ML VIAL ONE (11:46)
== END 2016-12-02 13:15 ==
LOC: MADERS 07:45
DX: I10 Essential (primary) hypertension (principal); M79.673 Pain in unspecified foot; E78.5 Hyperlipidemia, unspecified; K21.9 Gastro-esophageal reflux disease without esophagitis; F41.9 Anxiety disorder, unspecified; F32.9 Major depressive disorder, single episode, unspecified
CPT/HCPCS: 36416; 70450; 80053; 81003; 81015; 82553; 83735; 84443; 84484; 85025; 93005; 96365; 96375; J0360; J1885; J2550

== ENCOUNTER 2016-12-04 06:27 | Outpatient (CLI) | payer MEDICARE ==
[2016-12-04 07:35] LABS: ALT (SGPT) 11 U/L (8-55); AST (SGOT) 17 U/L (5-34); Albumin 3.5 g/dL (3.4-4.8); Alkaline Phosphatase 53 U/L (40-150); Anion Gap 12 mmol/L (10-20); BUN (Urea Nitrogen) 17 mg/dL (9.8-20.1); Bilirubin, Total 0.4 mg/dL (0.2-1.2); Calc. Creatinine Clearance 0 mL/min (70-130); Calcium 8.9 mg/dL (7.8-10.44); Carbon Dioxide 28 mmol/L (23-31); Cardiac Risk 2.5 (Less than 4.5); Chloride 106 mmol/L (98-107); Cholesterol 133 mg/dl (< 200 Desired); Estimated GFR-MDRD 61; Glucose 91 mg/dL (83-110); HDL Cholesterol 54 mg/dL (>60 Neg Risk); LDL Cholesterol, Calculated 67 mg/dL; Potassium 4.3 mmol/L (3.5-5.1); Protein, Total 6.5 g/dL (6.0-8.3); Sodium 142 mmol/L (136-145); Triglycerides 60 mg/dL (Less than 150)
[2016-12-04 07:49] LABS: Free T4 (Free Thyroxine) 0.91 ng/dL (0.70-1.48); Thyroid Stimulating Hormone 3.2567 uIU/mL (0.35-4.94)
[2016-12-04 07:51] LABS: #Basophils 0.2 thou/uL (0.0-0.2); #Eosinphils 0.7 thou/uL (0.0-0.7); #Lymphocytes 2.3 thou/uL (1.20-3.40); #Monocytes 0.9 thou/uL (0.11-0.59); #Neutrophils 3.6 thou/uL (1.40-6.50); %Basophils 2.2 % (0.0-1.0); %Eosinophils 8.9 % (0.0-10.0); %Lymphocytes 29.9 % (21.0-51.0); %Monocytes 11.7 % (0.0-10.0); %Neutrophils 47.4 % (42.0-75.0); Hemoglobin 13.2 g/dL (12.0-16.0); Mean Corpuscular HGB CONC 31.9 g/dL (32.0-36.0); Mean Corpuscular Hemoglobin 27.1 pg (27.0-31.0); Mean Platelet Volume 6.4 fL (7.4-10.4); Platelet Count 276 thou/uL (130-400); RBC Distribution Width 14.1 % (11.5-14.5); Red Blood Cell (RBC) Count 4.88 mill/uL (4.20-5.40); White Blood Cell (WBC) Count 7.6 thou/uL (4.8-10.8)
== END 2016-12-04 06:28 | disposition home or self-care (01) ==
LOC: MADLAB 06:27
PROVIDERS: ATTEND Family Medicine
DX: E78.5 Hyperlipidemia, unspecified (principal); E03.9 Hypothyroidism, unspecified; K21.9 Gastro-esophageal reflux disease without esophagitis
CPT/HCPCS: 36415; 80053; 80061; 84439; 84443; 85025

== ENCOUNTER 2016-12-26 14:06 | Emergency (ER) | payer MEDICARE ==
[2016-12-26] MEDS ORDERED: diphenhydrAMINE HCl 25 MG CAP ONE (15:37)
[2016-12-26] MEDS ORDERED: Ketorolac Tromethamine 30 MG/ML VIAL ONE (15:37)
== END 2016-12-26 16:00 | disposition home or self-care (01) ==
LOC: MADERS 14:06
DX: G89.4 Chronic pain syndrome (principal); E05.90 Thyrotoxicosis, unspecified without thyrotoxic crisis or storm; E78.5 Hyperlipidemia, unspecified; I10 Essential (primary) hypertension; K21.9 Gastro-esophageal reflux disease without esophagitis; F41.9 Anxiety disorder, unspecified; F32.9 Major depressive disorder, single episode, unspecified; Z79.899 Other long term (current) drug therapy
CPT/HCPCS: 96372; J1885

== ENCOUNTER 2017-01-07 11:54 | Emergency (ER) | payer MEDICARE ==
[2017-01-07 12:32] LABS: #Basophils 0.2 thou/uL (0.0-0.2); #Eosinphils 0.5 thou/uL (0.0-0.7); #Monocytes 0.8 thou/uL (0.11-0.59); %Basophils 2.2 % (0.0-1.0); %Eosinophils 5.8 % (0.0-10.0); %Lymphocytes 23.6 % (21.0-51.0); %Monocytes 9.2 % (0.0-10.0); %Neutrophils 59.2 % (42.0-75.0); Hemoglobin 13.8 g/dL (12.0-16.0); Mean Corpuscular HGB CONC 33.1 g/dL (32.0-36.0); Mean Corpuscular Hemoglobin 27.4 pg (27.0-31.0); Mean Corpuscular Volume 82.6 fl (81.0-99.0); Mean Platelet Volume 6.7 fL (7.4-10.4); Platelet Count 293 thou/uL (130-400); RBC Distribution Width 13.9 % (11.5-14.5); Red Blood Cell (RBC) Count 5.05 mill/uL (4.20-5.40); White Blood Cell (WBC) Count 8.4 thou/uL (4.8-10.8)
[2017-01-07 12:35] LABS: INR-International Normal Ratio 0.9; PTT 28.6 SEC (22.9-36.1); Prothrombin Time 12.9 SEC (12.0-14.7)
[2017-01-07 12:44] LABS: ALT (SGPT) 12 U/L (8-55); AST (SGOT) 20 U/L (5-34); Albumin 3.7 g/dL (3.4-4.8); Alkaline Phosphatase 60 U/L (40-150); Anion Gap 13 mmol/L (10-20); BUN (Urea Nitrogen) 18 mg/dL (9.8-20.1); Bilirubin, Total 0.3 mg/dL (0.2-1.2); Calc. Creatinine Clearance 0 mL/min (70-130); Calcium 9.3 mg/dL (7.8-10.44); Carbon Dioxide 26 mmol/L (23-31); Chloride 104 mmol/L (98-107); Estimated GFR-MDRD 60; Globulin 3.3 g/dL (2.4-3.5); Glucose 92 mg/dL (83-110); Potassium 4.6 mmol/L (3.5-5.1); Sodium 138 mmol/L (136-145)
[2017-01-07 12:51] LABS: CKMB 1.3 ng/mL (0-6.6); Troponin I Less than 0.010 ng/mL (< 0.028)
[2017-01-07] MEDS ORDERED: Promethazine HCl 25 MG/ML VIAL ONE (12:59)
[2017-01-07] MEDS ORDERED: Aspirin 325 MG TAB ONE (12:59)
[2017-01-07] MEDS ORDERED: Nitroglycerin 0.4 MG TAB 1 EACH ONE (12:59)
[2017-01-07 13:05] LABS: Bilirubin Negative (Negative); Blood, Urine Trace (Negative); Clarity Clear (Clear); Glucose, Urine (Dipstick) Negative (Negative); Leukocyte Trace (Negative); Nitrite Negative (Negative); Protein, Urine (Dipstick) Negative (Neg-Trace); Specific Gravity, Urine 1.015 (1.005-1.030); Urobilinogen 0.2 mg/dL (0.2-1.0)
[2017-01-07 13:06] LABS: Bacteria/HPF Rare-Few HPF (None Seen); RBC/HPF 0-3 HPF (0-3); WBC/HPF 0-3 HPF (0-3)
--- NOTE | 2017-01-07 13:15 | RAD ---
RADIOGRAPH CHEST 1 VIEW: HISTORY: 89-year-old female with acute chest pain. FINDINGS: There is hyperinflation of the lungs, consistent with COPD. There is no evidence of air space densi ty, pneumothorax, or pulmonary edema. The lateral costophrenic angles are sharp. IMPRESSION: 1) No acute pulmonary findings. 2) Emphysema. [email or web address] POS: [facility]
[2017-01-07 13:21] LABS: CK (CPK) 24 U/L (29-168)
== END 2017-01-07 14:50 ==
LOC: MADERS 11:54
DX: I10 Essential (primary) hypertension (principal); J44.9 Chronic obstructive pulmonary disease, unspecified; E78.5 Hyperlipidemia, unspecified; F41.9 Anxiety disorder, unspecified; F32.9 Major depressive disorder, single episode, unspecified; Z79.899 Other long term (current) drug therapy
CPT/HCPCS: 71010; 80053; 81001; 82550; 82553; 83880; 84443; 84484; 85025; 85610; 85730; 87086; 93005; 94760; 96365; J2550

== ENCOUNTER 2017-02-28 08:23 | Emergency (ER) | payer MEDICARE ==
[2017-02-28 08:54] LABS: #Basophils 0.2 thou/uL (0.0-0.2); #Eosinphils 0.6 thou/uL (0.0-0.7); #Monocytes 1.5 thou/uL (0.11-0.59); #Neutrophils 6.7 thou/uL (1.40-6.50); %Basophils 1.8 % (0.0-1.0); %Eosinophils 5.7 % (0.0-10.0); %Lymphocytes 18.3 % (21.0-51.0); %Monocytes 13.8 % (0.0-10.0); %Neutrophils 60.4 % (42.0-75.0); Hemoglobin 13.3 g/dL (12.0-16.0); Mean Corpuscular Hemoglobin 27.9 pg (27.0-31.0); Mean Corpuscular Volume 84.6 fl (81.0-99.0); Mean Platelet Volume 6.1 fL (7.4-10.4); Platelet Count 367 thou/uL (130-400); RBC Distribution Width 13.1 % (11.5-14.5); Red Blood Cell (RBC) Count 4.77 mill/uL (4.20-5.40)
[2017-02-28 09:01] LABS: INR-International Normal Ratio 0.9; PTT 26.4 SEC (22.9-36.1); Prothrombin Time 12.7 SEC (12.0-14.7)
[2017-02-28 09:13] LABS: ALT (SGPT) 12 U/L (8-55); AST (SGOT) 23 U/L (5-34); Albumin 3.8 g/dL (3.4-4.8); Alkaline Phosphatase 61 U/L (40-150); Anion Gap 17 mmol/L (10-20); BUN (Urea Nitrogen) 23 mg/dL (9.8-20.1); Bilirubin, Total 0.4 mg/dL (0.2-1.2); CK (CPK) 31 U/L (29-168); Calc. Creatinine Clearance 0 mL/min (70-130); Calcium 9.2 mg/dL (7.8-10.44); Carbon Dioxide 21 mmol/L (23-31); Chloride 101 mmol/L (98-107); Estimated GFR-MDRD 50; Globulin 3.6 g/dL (2.4-3.5); Glucose 118 mg/dL (83-110); Magnesium 2.2 mg/dL (1.6-2.6); Potassium 4.5 mmol/L (3.5-5.1); Protein, Total 7.4 g/dL (6.0-8.3); Sodium 134 mmol/L (136-145)
[2017-02-28 09:14] LABS: CKMB 1.1 ng/mL (0-6.6); Troponin I Less than 0.010 ng/mL (< 0.028)
[2017-02-28 09:27] LABS: Bilirubin Negative (Negative); Blood, Urine Small (Negative); Clarity Slightly Cloudy (Clear); Glucose, Urine (Dipstick) Negative (Negative); Leukocyte Moderate (Negative); Nitrite Negative (Negative); Protein, Urine (Dipstick) Negative (Neg-Trace); Specific Gravity, Urine 1.015 (1.005-1.030); Urobilinogen 0.2 mg/dL (0.2-1.0); pH, Urine 5.5 (5.0-9.0)
[2017-02-28 09:31] LABS: Bacteria/HPF 4+ HPF (None Seen); Squamous Epithelial 0-3 HPF (0-3); WBC/HPF 21-50 HPF (0-3)
[2017-02-28] MEDS ORDERED: Aspirin 325 MG TAB ONE (09:56)
[2017-02-28] MEDS ORDERED: Acetaminophen 325 MG TAB ONE (09:56)
[2017-02-28] MEDS ORDERED: Ciprofloxacin 500 MG TAB ONE (10:12)
--- NOTE | 2017-02-28 10:25 | RAD ---
PORTABLE CHEST: Date: 02/28/17 HISTORY: Chest pain. COMPARISON: 01/07/17 study. FINDINGS: The heart size is within normal limits for portable technique. There are atherosclerotic changes of the aorta. Slight obscuration to the left heart border. I am not certain if this is technique relate d or just some minimal developing infiltrate. I would tend to favor it is technique related, but cli nical correlation and a PA and lateral chest film may be helpful in assessment. IMPRESSION: Questionable early lingular infiltrate versus technique. POS: [facility]
== END 2017-02-28 10:35 ==
LOC: MADERS 08:23
DX: N39.0 Urinary tract infection, site not specified (principal); K21.9 Gastro-esophageal reflux disease without esophagitis; E05.90 Thyrotoxicosis, unspecified without thyrotoxic crisis or storm; E78.5 Hyperlipidemia, unspecified; I10 Essential (primary) hypertension; M48.06 Spinal stenosis, lumbar region; F41.9 Anxiety disorder, unspecified; F32.9 Major depressive disorder, single episode, unspecified
CPT/HCPCS: 36416; 71010; 80053; 81001; 82553; 83735; 83880; 84484; 85025; 85610; 85730; 87081; 87086; 87430; 93005; 94760; A4353

== ENCOUNTER 2017-04-04 15:29 | Emergency (ER) | payer MEDICARE ==
[2017-04-04] MEDS ORDERED: Ketorolac Tromethamine 60 MG/2 ML VIAL ONE (16:29)
[2017-04-04] MEDS ORDERED: Ketorolac Tromethamine 30 MG/ML VIAL ONE (17:27)
== END 2017-04-04 18:20 ==
LOC: MADERS 15:29
DX: G58.9 Mononeuropathy, unspecified (principal); I10 Essential (primary) hypertension; E03.9 Hypothyroidism, unspecified; E05.90 Thyrotoxicosis, unspecified without thyrotoxic crisis or storm; F41.9 Anxiety disorder, unspecified; K21.9 Gastro-esophageal reflux disease without esophagitis; F32.9 Major depressive disorder, single episode, unspecified; Z79.82 Long term (current) use of aspirin; Z79.899 Other long term (current) drug therapy; Z79.891 Long term (current) use of opiate analgesic
CPT/HCPCS: 96372; J1885

== ENCOUNTER 2017-05-03 13:40 | Emergency (ER) | payer MEDICARE ==
[~2017-05-03 13:40] MED LIST changes: -Sodium Chloride 0.9% 100 ML BAG ONE; +Sodium Chloride 0.9% 500 ML BAG ONE
[2017-05-03 15:16] LABS: Bilirubin Negative (Negative); Blood, Urine Trace (Negative); Clarity Clear (Clear); Glucose, Urine (Dipstick) Negative (Negative); Leukocyte Small (Negative); Nitrite Negative (Negative); Protein, Urine (Dipstick) Negative (Neg-Trace); Specific Gravity, Urine 1.015 (1.005-1.030); Urobilinogen 0.2 mg/dL (0.2-1.0)
[2017-05-03] MEDS ORDERED: Promethazine HCl 25 MG/ML VIAL ONE (15:17)
[2017-05-03] MEDS ORDERED: Ketorolac Tromethamine 30 MG/ML VIAL ONE (15:17)
[2017-05-03 15:24] LABS: Bacteria/HPF Rare-Few HPF (None Seen); Squamous Epithelial 0-3 HPF (0-3)
[2017-05-03 15:45] LABS: #Basophils 0.1 thou/uL (0.0-0.2); #Eosinphils 0.4 thou/uL (0.0-0.7); #Monocytes 1.1 thou/uL (0.11-0.59); #Neutrophils 5.4 thou/uL (1.40-6.50); %Basophils 1.6 % (0.0-1.0); %Eosinophils 4.4 % (0.0-10.0); %Lymphocytes 22.1 % (21.0-51.0); %Monocytes 11.7 % (0.0-10.0); %Neutrophils 60.2 % (42.0-75.0); Hemoglobin 12.9 g/dL (12.0-16.0); Mean Corpuscular HGB CONC 34.9 g/dL (32.0-36.0); Mean Corpuscular Hemoglobin 29.7 pg (27.0-31.0); Mean Corpuscular Volume 84.9 fl (81.0-99.0); Mean Platelet Volume 5.9 fL (7.4-10.4); Platelet Count 367 thou/uL (130-400); RBC Distribution Width 12.2 % (11.5-14.5); Red Blood Cell (RBC) Count 4.35 mill/uL (4.20-5.40); White Blood Cell (WBC) Count 8.9 thou/uL (4.8-10.8)
[2017-05-03 16:03] LABS: ALT (SGPT) 11 U/L (8-55); AST (SGOT) 18 U/L (5-34); Albumin 3.6 g/dL (3.4-4.8); Alkaline Phosphatase 64 U/L (40-150); Anion Gap 14 mmol/L (10-20); BUN (Urea Nitrogen) 20 mg/dL (9.8-20.1); Bilirubin, Total 0.4 mg/dL (0.2-1.2); CK (CPK) 25 U/L (29-168); Calc. Creatinine Clearance 0 mL/min (70-130); Calcium 8.8 mg/dL (7.8-10.44); Carbon Dioxide 27 mmol/L (23-31); Chloride 98 mmol/L (98-107); Estimated GFR-MDRD 63; Globulin 2.9 g/dL (2.4-3.5); Glucose 91 mg/dL (83-110); Potassium 4.2 mmol/L (3.5-5.1); Protein, Total 6.5 g/dL (6.0-8.3); Sodium 135 mmol/L (136-145)
[2017-05-03 16:12] LABS: CKMB 1.5 ng/mL (0-6.6); Troponin I Less than 0.010 ng/mL (< 0.028)
== END 2017-05-03 17:22 | disposition home or self-care (01) ==
LOC: MADERS 13:40
DX: G89.4 Chronic pain syndrome (principal); R55 Syncope and collapse; E78.5 Hyperlipidemia, unspecified; I10 Essential (primary) hypertension; K21.9 Gastro-esophageal reflux disease without esophagitis; E05.90 Thyrotoxicosis, unspecified without thyrotoxic crisis or storm; F41.9 Anxiety disorder, unspecified; F32.9 Major depressive disorder, single episode, unspecified; Z79.891 Long term (current) use of opiate analgesic; Z79.82 Long term (current) use of aspirin
CPT/HCPCS: 36415; 80053; 81001; 82550; 82553; 83880; 84484; 85025; 87086; 93005; 96361; 96374; 96375; J1885; J2550; J7050

== ENCOUNTER 2017-06-29 19:11 | Emergency (ER) | payer MEDICARE ==
[2017-06-29] MEDS ORDERED: Acetaminophen 500 MG TAB ONE (19:21)
[2017-06-29] MEDS ORDERED: Oseltamivir 75 MG CAP ONE (19:21)
[2017-06-29] MEDS ORDERED: Ibuprofen 600 MG TAB ONE (19:26)
[2017-06-29] MEDS ORDERED: Clindamycin 150 MG CAP ONE (20:20)
[2017-06-29] MEDS ORDERED: Benzonatate 100 MG CAP ONE (20:20)
== END 2017-06-29 20:34 | disposition home or self-care (01) ==
LOC: MADERS 19:11
DX: J20.9 Acute bronchitis, unspecified (principal); E05.90 Thyrotoxicosis, unspecified without thyrotoxic crisis or storm; I10 Essential (primary) hypertension; K21.9 Gastro-esophageal reflux disease without esophagitis; M19.90 Unspecified osteoarthritis, unspecified site; F41.9 Anxiety disorder, unspecified; F32.9 Major depressive disorder, single episode, unspecified; Z79.82 Long term (current) use of aspirin; Z79.891 Long term (current) use of opiate analgesic; Z79.899 Other long term (current) drug therapy
CPT/HCPCS: 99283

== ENCOUNTER 2017-07-13 11:00 | Emergency (ER) | payer MEDICARE ==
[2017-07-13 11:52] LABS: #Basophils 0.1 thou/uL (0.0-0.2); #Eosinphils 0.4 thou/uL (0.0-0.7); #Lymphocytes 2.9 thou/uL (1.20-3.40); #Monocytes 1.4 thou/uL (0.11-0.59); #Neutrophils 9.2 thou/uL (1.40-6.50); %Basophils 0.8 % (0.0-1.0); %Eosinophils 2.9 % (0.0-10.0); %Monocytes 9.9 % (0.0-10.0); %Neutrophils 65.4 % (42.0-75.0); Hemoglobin 13.7 g/dL (12.0-16.0); Mean Corpuscular HGB CONC 32.7 g/dL (32.0-36.0); Mean Corpuscular Hemoglobin 28.2 pg (27.0-31.0); Mean Corpuscular Volume 86.3 fl (81.0-99.0); Mean Platelet Volume 4.8 fL (7.4-10.4); Platelet Count 491 thou/uL (130-400); Red Blood Cell (RBC) Count 4.86 mill/uL (4.20-5.40)
[2017-07-13 12:11] LABS: ALT (SGPT) 14 U/L (8-55); AST (SGOT) 17 U/L (5-34); Albumin 3.7 g/dL (3.4-4.8); Alkaline Phosphatase 67 U/L (40-150); Anion Gap 14 mmol/L (10-20); BUN (Urea Nitrogen) 18 mg/dL (9.8-20.1); Bilirubin, Total 0.4 mg/dL (0.2-1.2); Calc. Creatinine Clearance 0 mL/min (70-130); Calcium 9.2 mg/dL (7.8-10.44); Carbon Dioxide 28 mmol/L (23-31); Chloride 94 mmol/L (98-107); Estimated GFR-MDRD 70; Globulin 3.3 g/dL (2.4-3.5); Glucose 96 mg/dL (83-110); Potassium 4.4 mmol/L (3.5-5.1); Sodium 132 mmol/L (136-145)
--- NOTE | 2017-07-13 12:11 | RAD ---
PA AND LATERAL CHEST X-RAY: 07/13/2017 HISTORY: Cough. COMPARISON: 02/28/2017 FINDINGS: Dorsal column stimulator leads again overly the thoracic spine. 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 The lungs are otherwise clear. The cardiac silhouette and pulmonary vasculature are w ithin normal limits. Symmetric biapical pleural and parenchymal scarring are present with minimal sc attered linear densities present, likely related to areas of mild scarring and chronic lung changes. There has been no interval change compared to the prior exam. IMPRESSION: No acute cardiopulmonary process. POS: [facility]
[2017-07-13] MEDS ORDERED: Albuterol Sulfate 1.25 MG/3 ML NEB ONE (12:20)
[2017-07-13] MEDS ORDERED: Lidocaine 1% 20 ML MDV ONE (12:45)
[2017-07-13] MEDS ORDERED: cefTRIAXone\\ROCEPHIN 1 GM VIAL ONE (12:45)
== END 2017-07-13 13:05 | disposition home or self-care (01) ==
LOC: MADERS 11:00
DX: J18.0 Bronchopneumonia, unspecified organism (principal); I10 Essential (primary) hypertension; E05.90 Thyrotoxicosis, unspecified without thyrotoxic crisis or storm; E78.5 Hyperlipidemia, unspecified; K21.9 Gastro-esophageal reflux disease without esophagitis; F41.9 Anxiety disorder, unspecified; F32.9 Major depressive disorder, single episode, unspecified; Z79.82 Long term (current) use of aspirin; Z79.899 Other long term (current) drug therapy
CPT/HCPCS: 36415; 71046; 80053; 85025; 87040; 96372; J0696; J1040; J2001

== ENCOUNTER 2017-07-27 11:05 | Emergency (ER) | payer MEDICARE ==
[2017-07-27] MEDS ORDERED: Promethazine HCl 25 MG/ML VIAL ONE (11:20)
[2017-07-27] MEDS ORDERED: HyperTET 250 UNITS/ML 1 ML SYRINGE ONE (11:38)
[2017-07-27] MEDS ORDERED: Ibuprofen 200 MG TAB ONE (11:38)
[2017-07-27 11:48] LABS: Bilirubin Negative (Negative); Blood, Urine Small (Negative); Clarity Clear (Clear); Glucose, Urine (Dipstick) Negative (Negative); Leukocyte Negative (Negative); Nitrite Negative (Negative); Protein, Urine (Dipstick) Negative (Neg-Trace); Specific Gravity, Urine 1.015 (1.005-1.030); Urobilinogen 0.2 mg/dL (0.2-1.0)
[2017-07-27 11:50] LABS: Squamous Epithelial 0-3 HPF (0-3); WBC/HPF 0-3 HPF (0-3)
[2017-07-27 11:51] LABS: Bacteria/HPF Rare-Few HPF (None Seen)
--- NOTE | 2017-07-27 12:00 | RAD ---
THREE VIEWS OF THE LUMBOSACRAL SPINE: HISTORY: Possible compression fracture with pain after injury. COMPARISON: None. FINDINGS: Three views of the lumbosacral spine show normal height and alignment of the vertebral bodies and int ervertebral disks without fracture or subluxation. A spinal stimulation device is seen projecting of f the superior aspect of the film, with its leads in the mid thoracic spine. Cholecystectomy clips a re seen. No significant degenerative changes are seen in the lumbar spine. IMPRESSION: No evidence of acute osseous abnormality of the lumbar spine. POS: [facility]
[2017-07-27 13:19] LABS: RBC/HPF 0-3 HPF (0-3)
== END 2017-07-27 12:30 ==
LOC: MADERS 11:05
DX: M54.5 Low back pain (principal); G89.29 Other chronic pain; E05.90 Thyrotoxicosis, unspecified without thyrotoxic crisis or storm; E78.5 Hyperlipidemia, unspecified; I10 Essential (primary) hypertension; K21.9 Gastro-esophageal reflux disease without esophagitis; F41.9 Anxiety disorder, unspecified; F32.9 Major depressive disorder, single episode, unspecified; Z79.82 Long term (current) use of aspirin; Z79.899 Other long term (current) drug therapy
CPT/HCPCS: 51701; 72100; 81003; 81015; 96372; A4353; J1670; J2550

== ENCOUNTER 2017-10-07 11:09 | Outpatient (CLI) | payer MEDICARE ==
[2017-10-07 12:43] LABS: Anion Gap 15 mmol/L (10-20); BUN (Urea Nitrogen) 22 mg/dL (9.8-20.1); Calc. Creatinine Clearance 0 mL/min (70-130); Calcium 9.2 mg/dL (7.8-10.44); Carbon Dioxide 25 mmol/L (23-31); Chloride 91 mmol/L (98-107); Estimated GFR-MDRD 67; Glucose 87 mg/dL (83-110); Potassium 4.2 mmol/L (3.5-5.1); Sodium 127 mmol/L (136-145)
== END 2017-10-07 11:10 | disposition home or self-care (01) ==
LOC: MADLABBHPM 11:09
PROVIDERS: ATTEND Family Medicine
DX: E87.1 Hypo-osmolality and hyponatremia (principal)
CPT/HCPCS: 36415; 80048

== ENCOUNTER 2017-10-14 13:04 | Outpatient (CLI) | payer MEDICARE ==
[2017-10-14 13:55] LABS: Anion Gap 14 mmol/L (10-20); BUN (Urea Nitrogen) 16 mg/dL (9.8-20.1); Calc. Creatinine Clearance 0 mL/min (70-130); Calcium 8.9 mg/dL (7.8-10.44); Carbon Dioxide 23 mmol/L (23-31); Chloride 101 mmol/L (98-107); Estimated GFR-MDRD 66; Glucose 88 mg/dL (83-110); Potassium 3.8 mmol/L (3.5-5.1); Sodium 134 mmol/L (136-145)
== END 2017-10-14 13:05 | disposition home or self-care (01) ==
LOC: MADLABBHPM 13:04
PROVIDERS: ATTEND Family Medicine
DX: E87.1 Hypo-osmolality and hyponatremia (principal)
CPT/HCPCS: 36415; 80048

== ENCOUNTER 2017-10-23 11:00 | Emergency (ER) | payer MEDICARE | END 2017-10-23 11:45 | disposition home or self-care (01) | LOC: MADERS 11:00 | DX: H10.9 Unspecified conjunctivitis (principal); I10 Essential (primary) hypertension; E05.90 Thyrotoxicosis, unspecified without thyrotoxic crisis or storm; E78.5 Hyperlipidemia, unspecified; F41.9 Anxiety disorder, unspecified; F32.9 Major depressive disorder, single episode, unspecified; K21.9 Gastro-esophageal reflux disease without esophagitis; Z79.899 Other long term (current) drug therapy; Z79.82 Long term (current) use of aspirin | CPT/HCPCS: 99282 ==

== ENCOUNTER 2017-11-20 14:38 | Outpatient (CLI) | payer MEDICARE ==
[2017-11-20 14:54] LABS: Bilirubin Negative (Negative); Blood, Urine Trace (Negative); Clarity Cloudy (Clear); Glucose, Urine (Dipstick) Negative (Negative); Leukocyte Large (Negative); Nitrite Positive (Negative); Protein, Urine (Dipstick) Negative (Neg-Trace); Specific Gravity, Urine 1.015 (1.005-1.030); Urobilinogen 0.2 mg/dL (0.2-1.0)
[2017-11-20 15:01] LABS: Anion Gap 15 mmol/L (10-20); BUN (Urea Nitrogen) 13 mg/dL (9.8-20.1); Calc. Creatinine Clearance 0 mL/min (70-130); Calcium 9.1 mg/dL (7.8-10.44); Carbon Dioxide 25 mmol/L (23-31); Chloride 100 mmol/L (98-107); Estimated GFR-MDRD 69; Glucose 82 mg/dL (83-110); Sodium 135 mmol/L (136-145)
[2017-11-20 15:27] LABS: RBC/HPF 0-3 HPF (0-3)
[2017-11-20 15:28] LABS: Bacteria/HPF 4+ HPF (None Seen)
== END 2017-11-20 14:39 ==
LOC: MADLABBHPM 14:38
PROVIDERS: ATTEND Urology
DX: N39.41 Urge incontinence (principal)
CPT/HCPCS: 80048; 81001; 87086